=== PATIENT | male | born 1980 | race Caucasian/White ===

== ENCOUNTER 2016-05-28 13:56 | Emergency (ER) | payer BC ==
[~2016-05-28] VITALS: Ht 175.3 cm; Wt 72.7 kg
[2016-05-28] MEDS ORDERED: NORCO 5/3251 TABLET PO (16:18)
[2016-05-28 16:39] VITALS: BP 121/73
== END 2016-05-28 16:40 | disposition home or self-care (01) ==
LOC: EME 13:56
PROC: 2W3RX1Z Immobilization of Left Lower Leg using Splint (ICD-10-PCS; principal; 2016-05-28)
DX: S92.102A Unspecified fracture of left talus, initial encounter for closed fracture (principal); W18.30XA Fall on same level, unspecified, initial encounter; X50.9XXA Other and unspecified overexertion or strenuous movements or postures, initial encounter; Y93.01 Activity, walking, marching and hiking; Y92.096 Garden or yard of other non-institutional residence as the place of occurrence of the external cause
CPT/HCPCS: 73630; 99281; 99284